=== PATIENT | male | born 1980 | race Two or more races ===

== ENCOUNTER 2018-08-06 16:38 | Emergency (ER) | payer MEDICAID ==
[~2018-08-06] VITALS: Ht 172.7 cm; Wt 85.3 kg
[2018-08-06 18:37] VITALS: BP 143/101
== END 2018-08-06 19:53 | disposition home or self-care (01) ==
LOC: ER 16:38
DX: M62.830 Muscle spasm of back (principal); M54.5 Low back pain
CPT/HCPCS: 72100

== ENCOUNTER 2023-04-23 14:51 | Emergency (ER) | payer MEDICAID ==
[~2023-04-23] VITALS: Ht 175.3 cm; Wt 96.1 kg
[2023-04-23 14:59] VITALS: BP 148/94; PULSE 111; RESP 18; O2SAT 99
== END 2023-04-23 20:04 | disposition left against medical advice (07) ==
LOC: ER 14:51
DX: S00.03XA Contusion of scalp, initial encounter (principal); Z53.21 Procedure and treatment not carried out due to patient leaving prior to being seen by health care provider; W01.0XXA Fall on same level from slipping, tripping and stumbling without subsequent striking against object, initial encounter; Y93.89 Activity, other specified; Y92.89 Other specified places as the place of occurrence of the external cause; Y99.8 Other external cause status